=== PATIENT | female | born 1980 | race Caucasian/White ===

== ENCOUNTER 2020-07-20 00:02 | Emergency (ER) | payer SELFPAY ==
[~2020-07-20] VITALS: Ht 144.8 cm; Wt 43.2 kg
[2020-07-20 00:11] VITALS: TEMP 98.2
[2020-07-20] MEDS ORDERED: XANAX 0.5MG0.5 MG PO (02:33)
[2020-07-20] MEDS ORDERED: CELEXA 20MG20 MG/TAB PO (02:33)
[2020-07-20] MEDS ORDERED: SYNTHROID 0.0.025 MG PO (02:33)
[2020-07-20] MEDS ORDERED: MORPHINE 1515 MG/TAB PO (03:59)
[2020-07-20 04:28] VITALS: BP 93/59; PULSE 68
== END 2020-07-20 04:29 | disposition home or self-care (01) ==
LOC: COL.ER 00:02
DX: M25.511 Pain in right shoulder (principal); T84.038A Mechanical loosening of other internal prosthetic joint, initial encounter; Z79.891 Long term (current) use of opiate analgesic